=== PATIENT | female | born 1995 | race African-American/Black ===

== ENCOUNTER 2016-08-27 21:09 | Emergency (ER) | payer OTHER ==
[2016-08-27 22:00] VITALS: BP 116/63
[2016-08-27] MEDS ORDERED: Amoxicillin CAP* 500 MG PO ONE (23:24)
[2016-08-27] MEDS ORDERED: predniSONE TAB* 20 MG PO ONE (23:24)
[2016-08-27] MEDS ORDERED: Acetaminop/Codeine 30 MG TAB* 1 TAB (300 MG/30 MG) PO ONE (23:24)
[2016-08-28 11:47] LABS: EBV Response YES
[2016-08-28 12:23] LABS: Mono Internal Control QC Line Present
[2016-08-29 17:43] LABS: EBV Capsid Ag IgG Ab Positive (Negative); EBV Capsid Ag IgM Ab Negative (Negative)
--- NOTE | 2016-09-20 19:16 | UC ---
Kulwinder Chadwick Alok, scribed for Danisha Small DO on 08/27/16 at 2333 . Throat Pain/Nasal Rick HPI - HPI Summary HPI Summary: 20 y/o female presents to the and c/o a sore throat beginning yesterday. Pt states after seeing her student health care provider at [employer] yesterday she was given a zpak for what they believed to be strep throat, though she has been worsening since. Pt also has a constant RAMSAY described as pressure, chills, SOB on exertion, myalgia, dysphagia, ear pain, a subjective fever, and greater fatigue from baseline. Pt also adds that she has felt no appetite and has ingested no food for the last two days and has had only about 1 bottle of water today. Pt denies any rhinorrhea, nausea, cough, vomiting, or dysuria. - History of Current Complaint Chief Complaint: UCGeneralIllness Stated Complaint: SORE THROAT Time Seen by Provider: 08/27/16 22:27 Hx Obtained From: Patient Hx Last Menstrual Period: 08/07/16 ?: No Onset/Duration: Gradual Onset, Lasting Days, Still Present Severity: Moderate Cough: None Associated Signs & Symptoms: Positive: Dysphagia, Sinus Discomfort, Nasal Discharge, Fever - subjective. Negative: Drooling, Wheezing, Vomiting - Allergies/Home Medications Allergies/Adverse Reactions: Allergies Allergy/AdvReac Type Severity Reaction Status Date / Time No Known Allergies Allergy Verified 08/27/16 21:53 Home Medications: Home Medications Acetaminophen [Tylenol] 650 mg 08/27/16 [History] Methylphenidate HCl [Ritalin] 15 mg 08/27/16 [History] PMH/Surg Hx/FS Hx/Imm Hx Respiratory History Of: Reports: Asthma - Surgical History Surgical History: Yes Surgery Procedure, Year, and Place: anal fissure repair - 2013 - Family History Known Family History: Negative: Cardiac Disease, Hypertension, Diabetes - Social History Occupation: Student Alcohol Use: Rare Substance Use Type: None Smoking Status (MU): Never Smoked Tobacco Review of Systems Constitutional: Fever - subjective, Chills Skin: Negative Eyes: Negative ENT: Sore Throat, Ear Ache Respiratory: Shortness Of Breath Cardiovascular: Negative Gastrointestinal: Negative Genitourinary: Negative Motor: Negative Neurovascular: Negative Musculoskeletal: Negative Neurological: Headache Psychological: Negative All Other Systems Reviewed And Are Negative: Yes Physical Exam Triage Information Reviewed: Yes Appearance: Well-Appearing, No Pain Distress, Well-Nourished Vital Signs: Initial Vital Signs Temp 99.8 F 08/27/16 21:54 Pulse 86 08/27/16 21:54 Resp 16 08/27/16 21:54 BP 116/63 08/27/16 21:54 Pulse Ox 100 08/27/16 21:54 Vital Signs Reviewed: Yes Eyes: Positive: Conjunctiva Clear. Negative: Discharge ENT: Positive: Hearing grossly normal, Pharyngeal erythema, Nasal congestion, Nasal drainage, TMs normal, Tonsillar swelling, Tonsillar exudate, Other: - Palate is symmetrical. Negative: Trismus Neck: Positive: Supple, Nontender Respiratory: Positive: Lungs clear, Normal breath sounds, No respiratory distress, No accessory muscle use Cardiovascular: Positive: RRR, No Murmur Musculoskeletal Exam: Normal Neurological: Positive: Alert, Muscle Tone Normal Psychological Exam: Normal Psychological: Positive: Age Appropriate Behavior Skin Exam: Normal Skin: Positive: Other - Warm, dry, normal color Throat Pain/Nasal Course/Dx - Differential Dx/Diagnosis Differential Diagnosis/HQI/PQRI: Otitis Media, Pharyngitis, Sinusitis, Tonsillitis, URI Provider Diagnoses: strep throat, om Discharge - Discharge Plan Condition: Stable Disposition: HOME Prescriptions: Amoxicillin CAP* [Amoxicillin 500 MG CAP*] 500 mg PO Q12H #19 cap predniSONE TAB* [Deltasone TAB*] 40 mg PO DAILY #8 tab Patient Education Materials: Strep Throat (ED), Otitis Media (ED) Referrals: [facility] [Outside] (follow up in 4-6 days if not improving) Additional Instructions: AMOXICILLIN: Amoxicillin is a member of the penicillin family. It covers the germs likely to cause ear, bronchial, and urinary infections better than plain penicillin. Amoxicillin can be taken without regard to meals. Nausea after taking the medication is rare, but can occur. Diarrhea can occur, particularly in small children. Vaginal yeast infections and oral thrush in infants are also common. Contact your physician if these problems occur. Allergy to penicillins is common. If you have had an allergic reaction to any drug of the penicillin family, you should never take any other penicillin. Notify your doctor at once if you develop hives, itching, swelling, faintness, or shortness of breath. Less serious side effects can include nausea or diarrhea. ANY TIME YOU TAKE AN ANTIBIOTIC, IT IS IMPORTANT TO REPLENISH THE BODY'S BALANCE OF "GOOD" BACTERIA BY EATING HIGH QUALITY CULTURED FOOD SUCH YOGURT, SAURKRAUT OR JOSE CHI AND/OR TAKING A PROBIOTIC SUPPLEMENT. CORTICOSTEROID MEDICATION: You have been given a medicine of the cortisone class. This medication is used to control inflammation or allergy. It is usually only given for a short period of time, until the acute process subsides. There are usually no side effects from short-term use of cortisone-like medications. Some persons feel an increased sense of well-being and are not sleepy at bedtime. Long-term use of cortisone medications is best avoided, unless required for a severe condition. If your condition does not remit, or relapses after the course of corticosteroid medication, you should consult your physician. Contact the physician if you develop lightheadedness, black or tarry stools , swelling of the legs, or significant rapid change in weight. DISCUSSED, TRY MAGIC MOUTHWASH TO CONTROL PAIN PRIOR TO EATING. IT IS VERY IMPORTANT FOR YOU TO GET ADEQUATE FLUIDS. YOU NEED TO DRINK. The documentation as recorded by the Kulwinder bonilla Alok accurately reflects the service I personally performed and the decisions made by me, Danisha Small DO.
== END 2016-08-27 23:37 | disposition home or self-care (01) ==
LOC: UCEAST 21:09
DX: J02.0 Streptococcal pharyngitis (principal); H66.90 Otitis media, unspecified, unspecified ear
CPT/HCPCS: 36415; 86308; 86664; 86665; 99203; A9270-GY; G0463; J7512